=== PATIENT | female | born 1955 | race African-American/Black ===

== ENCOUNTER 2019-06-22 11:58 | Observation (INO) | payer MEDICARE ==
[2019-06-22] MEDS ORDERED: Aspirin Chewable 81 MG TAB ONE ×2 (12:35)
--- NOTE | 2019-06-22 16:40 | PDOC.HHP ---
Hospitalist HPI - History of Present Illness chest pain History of Present Illness: This is a 64 year old female with history of CAD s/p 2 stents who presented to the ER with chest pain. The patient lives in [place] and came to [place] to visit her mother. She developed chest pain on the right side, described it as sharp pain. She states it felt like a muscle soreness and decided to watch it however it continued to get worst so she decided to get it checked out. She says her pain is worst if she breathes too hard and worst with certain movement. She denies pain with exertion. Her pain was relieved with morphine and nitro that she received in the ER. She denies shortness of breath with exertion. She denies dizziness, lightheadedness or palpitations. She denies fevers, chills, runny nose, sore throat or cough. She did not take her aspirin or plavix this morning but received it in the ER. She She says that she had a heart attack two months ago with two stents placed. Her pain during that time was more of a stabbing pain. ED Course: Vitals on admission were normal. The patient had labs done at [facility] which showed low WBC 4.6, Hb 11.6, hyponatremia and mild hypokalemia. Chest X ray showed right upper lobe nodule. The patient received nitro, morphine and zofran and transferred here for further workup. Hospitalist ROS - Review of Systems Constitutional: denies: fever, chills Eyes: denies: pain, vision change ENT: reports: other (occasional jaw pain from dentures) Respiratory: denies: cough, dry, shortness of breath, pleuritic pain, sputum Cardiovascular: reports: chest pain. denies: palpitations, orthopnea Gastrointestinal: denies: nausea, vomiting, abdominal pain, hematochezia Genitourinary: denies: dysuria, frequency Musculoskeletal: denies: neck pain, shoulder pain Skin: denies: rash, lesions Neurological: denies: weakness, numbness Hospitalist History - Past Medical History Other Medical History: CAD s/p two stents Peripheral arterial disease History of carotid blockage - Past Surgical History Other Surgical History: Back surgery - Family History Other Family History: family history heart disease - Social History Smoking Status: Current some day smoker (patient smokes 1/2 pack every other day ) - Exam General Appearance: NAD, awake alert Eye: PERRL, anicteric sclera ENT: normocephalic atraumatic, no oropharyngeal lesions Neck: supple, no JVD Heart: RRR, no murmur, no gallops, no rubs Respiratory: CTAB, no wheezes, no rales, no ronchi Gastrointestinal: soft, non-tender, non-distended, normal bowel sounds Extremities: no cyanosis, no clubbing, no edema Skin: normal turgor, no lesions, no rashes Neurological: cranial nerve grossly intact, normal sensation to touch, no focal deficits, no new deficit Musculoskeletal: normal tone, normal strength, no muscle wasting Musculoskeletal - other findings: right upper lobe tenderness anteriorly and posteriorly on her chest Psychiatric: normal affect, normal behavior, A&O x 3, oriented to person Hospitalist Results - Labs Lab results: Troponin I 0.010 ng/mL (< 0.028) 06/22/19 15:21 - EKG Interpretation EKG: normal sinus rhythm Hospitalist H&P A/P - Plan Plan: This is a 64 year old female who presented to the ER with chest pain. Chest pain - atypical - she does have tenderness to palpation of right chest anteriorly and posteriorly. Could be costochondritis. Try lidocaine patch - continue aspirin, plavix - due for carotid doppler as outpatient on 07/02, patient wants to hold off on imaging RUL pulmonary nodule - will check CT chest Hypertension - continue coreg Peripheral arterial disease - due for outpatient arterial ultrasound as an outpatient. Hyponatremia - sodium 133. Hold HCTZ. Encourage oral intake Anemia - Hb 11. Check B12 and folate in the am Leukopenia - WBC 4.6, will monitor Code status: full code
[2019-06-22] MEDS ORDERED: Clopidogrel Bisulfate 75 MG TAB PO SCH ×2 (16:43→18:00)
[2019-06-22] MEDS ORDERED: Acetaminophen 325 MG TAB PO PRN (16:49)
[2019-06-22] MEDS ORDERED: Famotidine 20 MG TAB PO PRN (16:49)
--- NOTE | 2019-06-22 16:51 | PDOC.FMACP ---
Advance Care Planning - Note Summary: Advanced Care Planning was discussed. The diagnosis, prognosis and goals of care were discussed. Appropriate forms and documentation to accomplish the goals of care were discussed. All questions were answered. The Palliative Care Team will be engaged to assist with completion of any outstanding forms that are needed. Patient would like to be full code. No official HCP But would like sister and to be involved if she can't make decisions for herself Time Spent (mins): 20
[2019-06-22] MEDS ORDERED: Lidocaine 5% Patch TD SCH (17:00)
[2019-06-22] MEDS ORDERED: Potassium Chloride 20 MEQ TAB PO SCH (17:00)
[2019-06-22 17:09] VITALS: BMI 18.7
--- NOTE | 2019-06-22 19:15 | CT ---
CT CHEST WITHOUT CONTRAST: 06/22/19 INDICATIONS: Follow-up nodular density seen on recent chest x-ray in the right mid lung field. There is history of chest pain. FINDINGS: Lungs show no evidence of infiltrate or effusion. There are mild chronic parenchymal changes seen wit h mild hyperexpansion and mild peripheral interstitial thickening seen in both lungs. No evidence of pulmonary nodules seen in the right lung. A tiny nodule is seen in the peripheral left mid lung in the region of the lingula which measures in the 3 mm range. No other evidence of mass or nodule. The mediastinum is unremarkable. There is thorac ic aortic calcification. There is coronary artery calcification noted. Images of the upper abdomen un remarkable. Osseous structures unremarkable. There are nonspecific bilateral axillary lymph nodes which are symmetric. IMPRESSION: 1. There are chronic lung parenchymal changes as described. 2. No evidence of pulmonary nodules seen on the right. There is a tiny nodule in the left mid sebastien ng in the lingula. Suggest a follow-up noncontrast chest CT in one year. POS: ALEIDA
[2019-06-22 19:34] LABS: Troponin I 0.019 ng/mL (< 0.028)
[2019-06-22] MEDS ORDERED: Atorvastatin Calcium 40 MG TAB PO SCH (21:00)
[2019-06-23 04:25] LABS: Hemoglobin 10.4 g/dL (12.0-16.0); Mean Corpuscular HGB CONC 31.9 g/dL (32.0-36.0); Mean Corpuscular Hemoglobin 32.5 pg (27.0-31.0); Mean Platelet Volume 7.5 fL (7.4-10.4); Platelet Count 287 thou/uL (130-400); Red Blood Cell (RBC) Count 3.19 mill/uL (4.20-5.40)
[2019-06-23 04:35] LABS: Anion Gap 14 mmol/L (10-20); BUN (Urea Nitrogen) 12 mg/dL (9.8-20.1); Calc. Creatinine Clearance 52 mL/min (70-130); Calcium 9.1 mg/dL (7.8-10.44); Carbon Dioxide 22 mmol/L (23-31); Cardiac Risk 3.6 (Less than 4.5); Chloride 99 mmol/L (98-107); Cholesterol 111 mg/dl (< 200 Desired); Estimated GFR-MDRD 81; Glucose 97 mg/dL (80-115); HDL Cholesterol 31 mg/dL (>60 Neg Risk); LDL Cholesterol, Calculated 66 mg/dL; Potassium 3.9 mmol/L (3.5-5.1); Sodium 131 mmol/L (136-145); Triglycerides 69 mg/dL (Less than 150)
[2019-06-23] MEDS ORDERED: Lidocaine Patch Removal 1 EACH TOP SCH (05:00)
[2019-06-23] MEDS ORDERED: Clopidogrel Bisulfate 75 MG TAB PO SCH (09:00)
[2019-06-23] MEDS ORDERED: Aspirin 81 mg Enteric Coated Tablet PO SCH (09:00)
[2019-06-23 12:35] VITALS: BP 116/53; TEMP 97.9
--- NOTE | 2019-06-23 14:26 | EKG ---
Test Reason : Blood Pressure : / mmHG Vent. Rate : 053 BPM Atrial Rate : 053 BPM P-R Int : 144 ms QRS Dur : 084 ms QT Int : 474 ms P-R-T Axes : 078 059 -50 degrees QTc Int : 444 ms Sinus bradycardia Nonspecific ST and T wave abnormality Abnormal ECG Confirmed by ROSALIO ADAMES DO ([id number]), editorial cartoonist JULIANN GARCIA ([id number] on 06/23/2019 2:25:26 PM Referred By: Confirmed By:ROSALIO ADAMES DO
--- NOTE | 2019-06-23 20:30 | DIS ---
DATE OF ADMISSION: 06/22/2019 DATE OF DISCHARGE: 06/23/2019 DISCHARGE DIAGNOSES: 1. Chest pain, likely secondary to musculoskeletal pain versus acid reflux. 2. Left pulmonary nodule. 3. Anemia. 4. Hyponatremia. 5. Folate deficiency. CONSULTATIONS: None. PROCEDURES: None. BRIEF HISTORY OF PRESENT ILLNESS: This is a 64-year-old female with past medical history of CAD, who presented to the emergency room with chest pain. The patient reported some pain on the right side, which felt like indigestion. She did experience some relief after belching, however, it did not completely go away, so she decided to come to the ER. The patient did report a heart attack a few months prior and had 2 stents placed. She does follow up with a channeling machine runner in [place]. Her pain was relieved with morphine and nitroglycerin that she received in the ER. She denied fevers, chills, and cough. EKG was unremarkable. The patient was admitted for further workup. HOSPITAL COURSE: 1. Chest pain likely secondary to musculoskeletal etiology versus GERD: The patient had 3 sets of troponins, which were negative. The following day, the patient ambulated around the hallway and reported resolution of her chest pain. She did report improvement in her chest pain with lidocaine patch. She also stated that after she had passed some gas a few more timse that her pain had resolved. She did report some improvement in her pain with Pepcid as well. She was advised to take Pepcid twice daily as needed for indigestion and was given instructions on the GERD lifestyle. She was offered lidocaine patch on discharge; however, she declined and stated that she could buy this [id number]. Her channeling machine runner was called and asked about whether they wanted a stress test. They offered that they could see the patient in the clinic on June 26 for an appointment at 9:00 a.m. These instructions were given to the patient. She also is to get outpatient carotid Doppler with Dr. Cheatham on the as well. 2. Folate deficiency anemia: The patient was noted to have a hemoglobin of 10. Her folate levels were low at 5.3. She was started on folic acid supplements on discharge. 3. Hyponatremia: The patient had a sodium of 131 on the 1st. Her blood pressures were 116 without any antihypertensives. She was advised to discontinue her hydrochlorothiazide on discharge. 4. Pulmonary nodule: Chest x-ray on admission showed a questionable pulmonary nodule. I obtained a CT scan of her chest, which showed no pulmonary nodule on the right, but a 3-mm lingula nodule on the left. She was advised to get a CT scan of her chest in a year. DISCHARGE PHYSICAL EXAMINATION: ' VITAL SIGNS: Temperature 97.9, heart rate 55, respiratory rate 20, O2 saturation 95% on room air, and blood pressure 116/53. GENERAL: The patient is alert, awake, and oriented x3. CVS: Regular rate and rhythm. No murmurs, rubs, or gallops. LUNGS: Clear to auscultation bilaterally. ABDOMEN: Positive bowel sounds. Soft, nontender, and nondistended. EXTREMITIES: No edema. PERTINENT LABORATORY DATA: CBC on 06/22: White blood cell count 5.0, hemoglobin 10.4, hematocrit 32.5, MCV 102, and platelet count of 287. BMP on 06/22: Sodium 131, carbon dioxide 22. Troponin I: Negative x3. Lipid panel: Triglycerides 69, cholesterol 111, LDL 66, and HDL 31. Vitamin B12: 644. Folate: 5.30. IMAGING DATA: Chest CT on 06/21: Chronic lung parenchymal changes. No evidence of pulmonary nodules on the right. There is a tiny nodule on the left lingula. DISCHARGE CONDITION: Stable. ACTIVITY: As tolerated. DIET: Regular diet. DISCHARGE INSTRUCTIONS: The patient should follow up with her PCP in a week. She should have a repeat CT scan of her chest in 1 year due to pulmonary nodule seen on the left side. She should follow up with her channeling machine runner, Dr. Cheatham at 9:00 a.m. on the for consideration of a stress test. Job ID: [id number] [id number]
== END 2019-06-23 12:36 | disposition home or self-care (01) ==
LOC: ERS 11:58 → 2NO 15:09
PROVIDERS: ADMIT Internal Medicine; ATTEND Internal Medicine
DX: R07.89 Other chest pain (principal); R91.1 Solitary pulmonary nodule; I25.10 Atherosclerotic heart disease of native coronary artery without angina pectoris; D52.9 Folate deficiency anemia, unspecified; E87.1 Hypo-osmolality and hyponatremia; E78.00 Pure hypercholesterolemia, unspecified; I10 Essential (primary) hypertension; F17.210 Nicotine dependence, cigarettes, uncomplicated; I73.9 Peripheral vascular disease, unspecified; D72.819 Decreased white blood cell count, unspecified; Z79.82 Long term (current) use of aspirin; Z79.899 Other long term (current) drug therapy; Z88.0 Allergy status to penicillin; Z95.5 Presence of coronary angioplasty implant and graft
CPT/HCPCS: 71250; 80048; 80061; 82607; 82746; 84484; 85027; 93005; 99285; G0378 ×3; 36415

== ENCOUNTER 2022-05-31 21:43 | Emergency (ER) | payer MEDICARE ==
[2022-05-31] MEDS ORDERED: Amlodipine 5 MG TAB ONE (22:28)
[2022-05-31 22:54] LABS: Hemoglobin 9.9 g/dL (12.0-16.0); Mean Corpuscular Hemoglobin 32.7 pg (27.0-31.0); Mean Corpuscular Volume 98.9 fl (78.0-98.0); Mean Platelet Volume 7.5 fL (7.4-10.4); Platelet Count 269 10x3/uL (130-400); RBC Distribution Width 11.9 % (11.5-14.5); Red Blood Cell (RBC) Count 3.03 mill/uL (4.20-5.40); White Blood Cell (WBC) Count 6.2 10x3/uL (4.8-10.8)
[2022-05-31 23:16] LABS: Eosinophils 5 % (0-10); Lymphocytes 38 % (21-51); MDiff Complete? YES; Monocytes 1 % (0-10); Neutrophil 54 % (42-75); Platelet Morphology Comment Appears Adequate; Polychromasia SLIGHT = 2-3 cells (100X) (0-2/hpf); Reactive Lymphocytes 2 % (0-10)
[2022-05-31 23:18] LABS: ALT (SGPT) 7 U/L (8-55); AST (SGOT) 12 U/L (5-34); Alkaline Phosphatase 63 U/L (40-110); Anion Gap 11 mmol/L (10-20); BUN (Urea Nitrogen) 10 mg/dL (9.8-20.1); Bilirubin, Total 0.3 mg/dL (0.2-1.2); Calc. Creatinine Clearance 0 mL/min (70-130); Calcium 9.1 mg/dL (7.8-10.44); Carbon Dioxide 25 mmol/L (23-31); Chloride 110 mmol/L (98-107); Estimated GFR 57; Globulin 2.8 g/dL (2.4-3.5); Glucose 93 mg/dL (80-115); Lipase 27 U/L (8-78); Potassium 3.8 mmol/L (3.5-5.1); Protein, Total 6.8 g/dL (5.8-8.1); Sodium 142 mmol/L (136-145)
[2022-06-01 02:39] LABS: Troponin I Less than 0.010 ng/mL (< 0.028)
== END 2022-06-01 03:05 | disposition home or self-care (01) ==
LOC: ERS 21:43
DX: R07.9 Chest pain, unspecified (principal); I10 Essential (primary) hypertension; E78.00 Pure hypercholesterolemia, unspecified; F17.210 Nicotine dependence, cigarettes, uncomplicated; Z98.2 Presence of cerebrospinal fluid drainage device
CPT/HCPCS: 36415; 71045; 80053; 83690; 83880; 84484; 85025; 93005